=== PATIENT | female | born 1995 | race Caucasian/White ===

== ENCOUNTER 2020-03-29 00:22 | Emergency (ER) | payer OTHER ==
[~2020-03-29] VITALS: Ht 154.9 cm; Wt 46.7 kg
[~2020-03-29 00:22] MED LIST: CIPRO500 MG PO
== END 2020-03-29 04:31 | disposition home or self-care (01) ==
LOC: ER 00:22
DX: U07.1 COVID-19 (principal); R53.81 Other malaise; R51.9 Headache, unspecified

== ENCOUNTER → 2020-05-20 | Emergency (ER) | payer OTHER | END | disposition left against medical advice (07) | LOC: ER 19:37 | DX: Z53.20 Procedure and treatment not carried out because of patient's decision for unspecified reasons (principal) ==